=== PATIENT | male | born 1975 | race Caucasian/White ===

== ENCOUNTER 2016-09-26 13:17 | Emergency (ER) | payer MEDICAID, OTHER ==
[~2016-09-26] VITALS: Ht 182.9 cm; Wt 127.0 kg
[2016-09-26] MEDS ORDERED: ALBUTEROL FS 2.5 MG/3 ML VIAL.NEB NEB ONE (14:30)
[2016-09-26] MEDS ORDERED: IPRATROPIUM NEB FS 0.5 MG/2.5 ML AMPUL.NEB NEB ONE (14:30)
[2016-09-26] MEDS ORDERED: ACETAMINOPHEN ES 500 MG TABLET ONE (14:46)
[2016-09-26 14:48] LABS: BASOPHILS % (AUTO) 0.4 % (0.0-2.0); DIFF TOTAL % 100 %; EOSINOPHILS # (AUTO) 0.5 /CMM (0.0-0.7); EOSINOPHILS % (AUTO) 6.6 % (0.0-6.0); HEMATOCRIT 48 % (39-51); HEMOGLOBIN 16.1 g/dL (13.5-17.5); LYMPHOCYTES # (AUTO) 2.8 /CMM (0.8-4.8); LYMPHOCYTES % (AUTO) 34.6 % (20.0-44.0); MEAN CORPUSCULAR HEMOGLOBIN 29 PG (26.0-33.0); MEAN CORPUSCULAR HGB CONC 34 g/dl (31.0-36.0); MEAN CORPUSCULAR VOLUME 86 fL (80-96); MONOCYTES # (AUTO) 0.5 /CMM (0.1-1.30); MONOCYTES % (AUTO) 6.8 % (2.0-12.0); NEUTROPHILS # (AUTO) 4.2 /CMM (1.8-8.9); NEUTROPHILS % (AUTO) 51.6 % (43.0-81.0); PLATELET COUNT (AUTO) 335 /CMM (150-450); RED BLOOD CELL COUNT(AUTO) 5.54 MIL/uL (4.5-6.0)
[2016-09-26] MEDS ORDERED: IPRATROPIUM NEB FS 0.5 MG/2.5 ML AMPUL.NEB ONE (14:54)
[2016-09-26] MEDS ORDERED: ALBUTEROL FS 2.5 MG/3 ML VIAL.NEB ONE (14:54)
[2016-09-26 14:58] LABS: CALCIUM, SERUM 8.7 mg/dL (8.5-10.1); CREATININE 0.9 mg/dL (0.6-1.3); POTASSIUM 4.1 mmol/L (3.5-5.1)
[2016-09-26] MEDS ORDERED: ACETAMINOPHEN 325 MG TABLET PO ONE (15:00)
[2016-09-26 15:04] LABS: ALBUMIN 3.5 g/dL (3.4-5.0); BILIRUBIN,DIRECT 0.1 mg/dL (0.0-0.2); BILIRUBIN,TOTAL 0.5 mg/dL (0.2-1.0); INDIRECT BILIRUBIN 0.4 mg/dL (0.0-1.1); TOTAL PROTEIN, SERUM 7.7 g/dL (6.4-8.2)
[2016-09-26 17:00] VITALS: BP 140/89
== END 2016-09-26 17:12 | disposition home or self-care (01) ==
LOC: ER 13:20
DX: J12.9 Viral pneumonia, unspecified (principal); J40 Bronchitis, not specified as acute or chronic; E11.9 Type 2 diabetes mellitus without complications; I10 Essential (primary) hypertension; Z88.0 Allergy status to penicillin
CPT/HCPCS: 36415; 71010; 80048; 80076; 85025; 87804 ×2; 93005; 94640; 99285; A4606; Z7610; 87400

== ENCOUNTER 2016-10-08 23:37 | Emergency (ER) | payer MEDICAID ==
[~2016-10-08] VITALS: Ht 182.9 cm; Wt 127.0 kg
[2016-10-09] MEDS ORDERED: predniSONE 20 MG TABLET ONE (00:07)
[2016-10-09] MEDS ORDERED: ONDANSETRON 4 MG TAB.RAPDIS ONE (00:07)
[2016-10-09] MEDS ORDERED: HYDROCODONE/APAP 10/325MG 1 EA TABLET ONE (00:07)
[2016-10-09] MEDS ORDERED: IPRATROPIUM NEB FS 0.5 MG/2.5 ML AMPUL.NEB ONE (00:23)
[2016-10-09] MEDS ORDERED: ALBUTEROL FS 2.5 MG/3 ML VIAL.NEB ONE (00:23)
[2016-10-09 00:30] LABS: BASOPHILS # (AUTO) 0.1 /CMM (0.0-0.2); BASOPHILS % (AUTO) 0.7 % (0.0-2.0); DIFF TOTAL % 100 %; EOSINOPHILS # (AUTO) 0.5 /CMM (0.0-0.7); HEMATOCRIT 51 % (39-51); HEMOGLOBIN 17.7 g/dL (13.5-17.5); LYMPHOCYTES # (AUTO) 4.8 /CMM (0.8-4.8); MEAN CORPUSCULAR HEMOGLOBIN 31 PG (26.0-33.0); MEAN CORPUSCULAR HGB CONC 35 g/dl (31.0-36.0); MEAN CORPUSCULAR VOLUME 89 fL (80-96); MONOCYTES # (AUTO) 0.7 /CMM (0.1-1.30); MONOCYTES % (AUTO) 5.9 % (2.0-12.0); NEUTROPHILS # (AUTO) 5.5 /CMM (1.8-8.9); NEUTROPHILS % (AUTO) 47.4 % (43.0-81.0); PLATELET COUNT (AUTO) 486 /CMM (150-450); RED BLOOD CELL COUNT(AUTO) 5.66 MIL/uL (4.5-6.0); WHITE BLOOD COUNT (AUTO) 11.5 K/uL (4.3-11.0)
[2016-10-09] MEDS ORDERED: predniSONE 20 MG TABLET PO ONE (00:30)
[2016-10-09] MEDS ORDERED: ALBUTEROL FS 2.5 MG/3 ML VIAL.NEB NEB ONE (00:30)
[2016-10-09] MEDS ORDERED: ONDANSETRON 4 MG TAB.RAPDIS SL ONE (00:30)
[2016-10-09] MEDS ORDERED: IPRATROPIUM NEB FS 0.5 MG/2.5 ML AMPUL.NEB NEB ONE (00:30)
[2016-10-09] MEDS ORDERED: HYDROCODONE/APAP 10/325MG 1 EA TABLET PO ONE (00:30)
[2016-10-09 00:42] LABS: ANION GAP 12 (5-14); CALCIUM, SERUM 9.3 mg/dL (8.5-10.1); CARBON DIOXIDE 31 mmol/L (21-32); CHLORIDE 102 mmol/L (98-107); CREATININE 1.1 mg/dL (0.6-1.3); GFR 73 mL/min (>60); GLUCOSE 124 mg/dL (74-106); POTASSIUM 3.7 mmol/L (3.5-5.1); SODIUM SERUM 141 mmol/L (136-145); UREA NITROGEN, BLOOD 11 mg/dL (7-18)
[2016-10-09 00:50] LABS: TROPONIN I < 0.017 ng/mL (0.00-0.056)
[2016-10-09 00:52] LABS: ALANINE AMINOTRANSFERASE 111 U/L (12-78); ALBUMIN 3.9 g/dL (3.4-5.0); ASPARTATE AMINOTRANSFERASE 66 U/L (15-37); BILIRUBIN,DIRECT 0.1 mg/dL (0.0-0.2); BILIRUBIN,TOTAL 0.5 mg/dL (0.2-1.0); INDIRECT BILIRUBIN 0.4 mg/dL (0.0-1.1)
[2016-10-09] MEDS ORDERED: IBUPROFEN 600 MG TABLET PO ONE ×2 (01:15→01:30)
[2016-10-09 01:22] VITALS: BP 142/69
[2016-10-09] MEDS ORDERED: KETOROLAC TROMETHAMINE INJ 30 MG/ML VIAL IV ONE (01:30)
== END 2016-10-09 01:32 | disposition home or self-care (01) ==
LOC: ER 23:41
DX: J20.9 Acute bronchitis, unspecified (principal); J18.9 Pneumonia, unspecified organism; K80.20 Calculus of gallbladder without cholecystitis without obstruction; I10 Essential (primary) hypertension; E11.9 Type 2 diabetes mellitus without complications; Z88.0 Allergy status to penicillin
CPT/HCPCS: 36415; 71010; 76705; 80048; 80076; 83690; 83880; 84484; 85025; 85378; 93005; 94640 ×2; 99285; A4606; J7512; Q0162; Z7610

== ENCOUNTER 2016-11-12 18:21 | Emergency (ER) | payer MEDICAID ==
[~2016-11-12] VITALS: Ht 182.9 cm; Wt 127.0 kg
[2016-11-12 18:28] VITALS: BP 148/86
== END 2016-11-12 19:25 | disposition home or self-care (01) ==
LOC: ER 18:30
DX: K04.7 Periapical abscess without sinus (principal); I10 Essential (primary) hypertension; E11.9 Type 2 diabetes mellitus without complications; Z88.0 Allergy status to penicillin
CPT/HCPCS: 99283; A4606; Z7610

== ENCOUNTER 2017-03-11 17:09 | Emergency (ER) | payer OTHER ==
[~2017-03-11] VITALS: Ht 177.8 cm; Wt 95.3 kg
[2017-03-11 17:21] VITALS: BP 150/99
== END 2017-03-11 17:50 | disposition home or self-care (01) ==
LOC: ER 17:14
DX: R09.81 Nasal congestion (principal); Z88.0 Allergy status to penicillin; E11.9 Type 2 diabetes mellitus without complications
CPT/HCPCS: 99281; A4606; Z7610; Z7502

== ENCOUNTER 2017-06-07 12:53 | Emergency (ER) | payer MEDICAID, OTHER ==
[~2017-06-07] VITALS: Ht 182.9 cm; Wt 124.7 kg
[2017-06-07 12:53] VITALS: BP 146/96
== END 2017-06-07 13:58 | disposition home or self-care (01) ==
LOC: ER 12:56
DX: K02.9 Dental caries, unspecified (principal); E11.9 Type 2 diabetes mellitus without complications; I10 Essential (primary) hypertension; Z88.0 Allergy status to penicillin
CPT/HCPCS: 71010; 99283; A4606; Z7610

== ENCOUNTER 2017-06-17 16:52 | Emergency (ER) | payer MEDICAID ==
[~2017-06-17] VITALS: Ht 182.9 cm; Wt 122.5 kg
--- NOTE | 2017-06-17 17:12 | NUR ---
PT AMBULATORY W/ STEADY GAIT TO ER BED 11. PT IS C/O FEVER W/ COUGH AND CONGESTION X 2 WEEKS NOW. SOB. GOWNED AND PLACED ON MONITOR. AWAITING MD GONZALEZ.
--- NOTE | 2017-06-17 17:36 | NUR ---
DR ANGEL AT BEDSIDE FOR EVAL.
--- NOTE | 2017-06-17 17:42 | NUR ---
IV LINE STARTED. BLOOD DRAWN AND SENT TO LAB.
[2017-06-17 17:48] LABS: BASOPHILS % (AUTO) 0.3 % (0.0-2.0); EOSINOPHILS # (AUTO) 0.2 /CMM (0.0-0.7); EOSINOPHILS % (AUTO) 2.3 % (0.0-6.0); HEMATOCRIT 48 % (39-51); HEMOGLOBIN 16.2 g/dL (13.5-17.5); LYMPHOCYTES # (AUTO) 2.5 /CMM (0.8-4.8); LYMPHOCYTES % (AUTO) 24.7 % (20.0-44.0); MEAN CORPUSCULAR HEMOGLOBIN 29 PG (26.0-33.0); MEAN CORPUSCULAR HGB CONC 34 g/dl (31.0-36.0); MEAN CORPUSCULAR VOLUME 84 fL (80-96); MONOCYTES # (AUTO) 0.8 /CMM (0.1-1.30); MONOCYTES % (AUTO) 7.5 % (2.0-12.0); NEUTROPHILS # (AUTO) 6.6 /CMM (1.8-8.9); NEUTROPHILS % (AUTO) 65.2 % (43.0-81.0); PLATELET COUNT (AUTO) 419 /CMM (150-450); RDW COEFFICIENT OF VARIATION 12.1 (11.5-15.0); RED BLOOD CELL COUNT(AUTO) 5.68 MIL/uL (4.5-6.0); WHITE BLOOD COUNT (AUTO) 10.1 K/uL (4.3-11.0)
[2017-06-17 17:57] LABS: CALCIUM, SERUM 8.8 mg/dL (8.5-10.1); POTASSIUM 3.8 mmol/L (3.5-5.1)
--- NOTE | 2017-06-17 18:10 | NUR ---
PT TO RADIOLOGY FOR CHEST CT SCAN VIA [facility].
--- NOTE | 2017-06-17 18:25 | NUR ---
RT AT BEDSIDE FOR BREATHING TREATMENT.
--- NOTE | 2017-06-17 19:20 | NUR ---
CALLED [facility], ASSEMBLER WET WASH WAS PAGED.
--- NOTE | 2017-06-17 20:58 | NUR ---
REPORT GIVEN TO DOLLY. PT AWAITING TRANSFER TO FLOOR.
[2017-06-17 23:06] VITALS: BP 142/90
--- NOTE | 2017-06-17 23:30 | NUR ---
Pt accepted to [facility] by Dr. LOPEZ. Room 5531. # For report [phone]
--- NOTE | 2017-06-17 23:34 | NUR ---
CALLED [facility] FOR TRANSPORT, ETA OF 90 MINS WAS GIVEN.
--- NOTE | 2017-06-17 23:42 | NUR ---
REPORT GIVEN TO KIMI APODACA AT [facility] AWAITING TRANSFER.
--- NOTE | 2017-06-18 01:12 | NUR ---
[facility] at bedside for transport to [facility].
== END 2017-06-18 01:17 | disposition short-term general hospital (02) ==
LOC: ER 16:53
DX: J18.9 Pneumonia, unspecified organism (principal); J91.8 Pleural effusion in other conditions classified elsewhere; E11.9 Type 2 diabetes mellitus without complications; I10 Essential (primary) hypertension; J45.909 Unspecified asthma, uncomplicated; Z88.0 Allergy status to penicillin
CPT/HCPCS: 36415; 71010-TC; 71250-TC; 80048-TC; 83605-TC; 85025-TC; 87040-TC; 87081-TC; 87400; A4606; J1956; J7030; Z7610

== ENCOUNTER 2018-01-24 15:01 | Emergency (ER) | payer MEDICAID, OTHER | END 2018-01-24 15:41 | disposition home or self-care (01) | DX: M54.5 Low back pain (principal); I10 Essential (primary) hypertension; E11.9 Type 2 diabetes mellitus without complications; Z88.0 Allergy status to penicillin ==

== ENCOUNTER 2019-01-26 10:20 | Emergency (ER) | payer MEDICAID, OTHER ==
[~2019-01-26] VITALS: Ht 182.9 cm; Wt 125.6 kg
--- NOTE | 2019-01-26 10:45 | NUR ---
PATIENT ARRIVED AMBULATORY WITH C/O DISCOMFORT AND ABSCESS ON HIS UPPER BACK. A&O X 3, NO ACUTE DISTRESS AT THIS TIME
[2019-01-26] MEDS ORDERED: HYDROCODONE/APAP 5/325MG 1 EACH TABLET ONE (11:20)
--- NOTE | 2019-01-26 11:27 | NUR ---
Patient discharged to home in stable condition. Written and verbal after care instructions given. Patient verbalizes understanding of instruction. Written prescriptions given to patient and verbalized understanding,
[2019-01-26 11:28] VITALS: BP 143/82
[2019-01-26] MEDS ORDERED: HYDROCODONE/APAP 5/325MG 1 EACH TABLET PO ONE (11:30)
== END 2019-01-26 11:29 | disposition home or self-care (01) ==
LOC: ER 10:29
DX: L72.3 Sebaceous cyst (principal); E11.9 Type 2 diabetes mellitus without complications; I10 Essential (primary) hypertension; Z88.0 Allergy status to penicillin

== ENCOUNTER 2019-04-23 11:31 | Emergency (ER) | payer OTHER ==
[~2019-04-23] VITALS: Ht 182.9 cm; Wt 122.5 kg
--- NOTE | 2019-04-23 12:47 | NUR ---
KURTIS DA SILVA AT BEDSIDE FOR EVAL.
[2019-04-23] MEDS ORDERED: ACETAMINOPHEN ES 500 MG TABLET ONE (12:55)
[2019-04-23] MEDS ORDERED: ACETAMINOPHEN ES 500 MG TABLET PO ONE (13:00)
[2019-04-23] MEDS ORDERED: IV NS 0.9% 1,000 ML BAG IV ONE (13:00)
[2019-04-23] MEDS ORDERED: LIDOCAINE 1%-EPI 1:100,000 20 ML VIAL ONE (13:00)
[2019-04-23] MEDS ORDERED: CLINDAMYCIN 900 MG in IV D5W 100 ML IV ONE (13:00)
--- NOTE | 2019-04-23 13:07 | NUR ---
DISBURSING AGENT AT BEDSIDE FOR BLOOD DRAW.
[2019-04-23 13:14] LABS: BASOPHILS # (AUTO) 0.1 /CMM (0.0-0.2); BASOPHILS % (AUTO) 0.3 % (0.0-2.0); EOSINOPHILS % (AUTO) 1.4 % (0.0-6.0); HEMATOCRIT 43 % (39-51); LYMPHOCYTES # (AUTO) 1.6 /CMM (0.8-4.8); LYMPHOCYTES % (AUTO) 9.7 % (20.0-44.0); MEAN CORPUSCULAR HGB CONC 35 g/dl (31.0-36.0); MEAN CORPUSCULAR VOLUME 85 fL (80-96); MONOCYTES # (AUTO) 1.2 /CMM (0.1-1.30); NEUTROPHILS # (AUTO) 13.4 /CMM (1.8-8.9); NEUTROPHILS % (AUTO) 81.6 % (43.0-81.0); PLATELET COUNT (AUTO) 238 /CMM (150-450); RED BLOOD CELL COUNT(AUTO) 5.08 MIL/uL (4.5-6.0); WHITE BLOOD COUNT (AUTO) 16.5 K/uL (4.3-11.0)
[2019-04-23 13:20] LABS: CALCIUM, SERUM 8.8 mg/dL (8.5-10.1); CREATININE 0.9 mg/dL (0.6-1.3); POTASSIUM 3.6 mmol/L (3.5-5.1)
--- NOTE | 2019-04-23 14:39 | NUR ---
INCISION AND DRAINAGE DONE. PROVIDED W/ WOUND CARE. D/C HOME IN STABLE CONDITION. IVHL D/C'D. NO BLEEDING NOTED.
[2019-04-23 14:43] VITALS: BP 132/68
== END 2019-04-23 14:43 | disposition home or self-care (01) ==
LOC: ER 11:35
DX: L02.212 Cutaneous abscess of back [any part, except buttock and flank] (principal); L03.312 Cellulitis of back [any part except buttock and flank]; E11.65 Type 2 diabetes mellitus with hyperglycemia; E66.9 Obesity, unspecified; I10 Essential (primary) hypertension; F10.10 Alcohol abuse, uncomplicated; R00.0 Tachycardia, unspecified; Y90.9 Presence of alcohol in blood, level not specified; Z68.30 Body mass index [BMI] 30.0-30.9, adult; Z88.0 Allergy status to penicillin; Z88.2 Allergy status to sulfonamides; Z88.1 Allergy status to other antibiotic agents
CPT/HCPCS: 10060; 36415; 80048; 82962; 83605; 85025; 87040 ×2; 96365; 99283; A6403; A6407; J3490 ×2; J7030 ×2; J7060

== ENCOUNTER → 2019-04-25 | Emergency (ER) | payer OTHER ==
[~2019-04-25] VITALS: Ht 182.9 cm; Wt 122.5 kg
[2019-04-25 22:45] VITALS: BP 136/83
== END | disposition home or self-care (01) ==
LOC: ER 22:28
DX: L02.212 Cutaneous abscess of back [any part, except buttock and flank] (principal); I10 Essential (primary) hypertension; E11.9 Type 2 diabetes mellitus without complications; F10.10 Alcohol abuse, uncomplicated; Y90.9 Presence of alcohol in blood, level not specified; Z88.0 Allergy status to penicillin; Z88.1 Allergy status to other antibiotic agents; Z88.2 Allergy status to sulfonamides

== ENCOUNTER 2021-04-19 12:09 | Emergency (ER) | payer OTHER ==
[~2021-04-19] VITALS: Ht 182.9 cm; Wt 117.9 kg
[2021-04-19 12:26] VITALS: BP 150/101
[2021-04-19] MEDS ORDERED: HYDROCODONE/APAP 10/325MG TABLET ONE (12:54)
[2021-04-19] MEDS ORDERED: AMOXICILLIN TRIHYDRATE 250 MG CAPSULE ONE (12:54)
[2021-04-19] MEDS ORDERED: HYDR-4209 PO (13:00)
[2021-04-19] MEDS ORDERED: CLIN300C12 PO (13:00)
[2021-04-19] MEDS: AMOXICILLIN TRIHYDRATE 500 MG CAPSULE PO ONE (13:01)
[2021-04-19] MEDS: HYDROCODONE/APAP 10/325MG TABLET PO ONE (13:01)
[2021-04-19] MEDS ORDERED: CLINDAMYCIN HCL 150 MG CAPSULE PO ONE (13:03)
[2021-04-19] MEDS: CLINDAMYCIN HCL 150 MG CAPSULE PO ONE (13:04)
--- NOTE | 2021-04-19 13:21 | NUR ---
patient did not develop any reaction from amoxicillin, patient feels ok to go home. dcPatient discharged to home in stable condition. Written and verbal after care instructions given. Patient verbalizes understanding of instruction.
== END 2021-04-19 13:22 | disposition home or self-care (01) ==
LOC: ER 12:13
DX: K08.89 Other specified disorders of teeth and supporting structures (principal); E11.9 Type 2 diabetes mellitus without complications; I10 Essential (primary) hypertension; Z88.0 Allergy status to penicillin; Z88.1 Allergy status to other antibiotic agents; Z88.2 Allergy status to sulfonamides

== ENCOUNTER 2021-05-17 11:11 | Emergency (ER) | payer OTHER ==
[~2021-05-17] VITALS: Ht 182.9 cm; Wt 113.4 kg
[~2021-05-17 11:11] MED LIST: CLIN300C12 PO; HYDR-4209 PO
--- NOTE | 2021-05-17 11:25 | NUR ---
PATIENT C/O WORSENING R SIDED UPPER BACK PAIN X 1 MONTH WORST LAYING DOWN. PATIENT ALERT AND ORIENTED X4. RESPIRATIONS EVEN AND UNLABORED. O SOB NOTED. WILL CONTINUE TO MONITOR.
[2021-05-17] MEDS ORDERED: HYDROCODONE/APAP 5/325MG TABLET ONE (11:33)
[2021-05-17] MEDS: HYDROCODONE/APAP 5/325MG TABLET PO ONE (11:38)
--- NOTE | 2021-05-17 11:44 | NUR ---
RADIOLOGY AT BEDSIDE.
[2021-05-17] MEDS ORDERED: HYDR-3972 PO ×2 (12:18→13:06)
--- NOTE | 2021-05-17 12:24 | NUR ---
Patient discharged to home in stable condition. Written and verbal after care instructions given. Patient verbalizes understanding of instruction.
[2021-05-17 12:25] VITALS: BP 142/82
== END 2021-05-17 12:25 | disposition home or self-care (01) ==
LOC: ER 11:13
DX: M54.6 Pain in thoracic spine (principal); E11.9 Type 2 diabetes mellitus without complications; I10 Essential (primary) hypertension; F10.10 Alcohol abuse, uncomplicated; R00.0 Tachycardia, unspecified; E66.9 Obesity, unspecified; Y90.9 Presence of alcohol in blood, level not specified; Z68.33 Body mass index [BMI] 33.0-33.9, adult; Z79.899 Other long term (current) drug therapy; Z88.0 Allergy status to penicillin; Z88.2 Allergy status to sulfonamides
CPT/HCPCS: 71046

== ENCOUNTER 2024-08-15 09:42 | Emergency (ER) | payer OTHER ==
[~2024-08-15] VITALS: Ht 177.8 cm; Wt 111.6 kg
[~2024-08-15 09:42] MED LIST changes: +HYDR-3972 PO
[2024-08-15] MEDS ORDERED: CLIN300C12 PO (10:27)
[2024-08-15 10:49] VITALS: BP 141/91; TEMP 98.5; O2SAT 98
== END 2024-08-15 10:49 | disposition home or self-care (01) ==
LOC: ER 09:49
DX: K04.7 Periapical abscess without sinus (principal); K02.9 Dental caries, unspecified; I10 Essential (primary) hypertension; E11.9 Type 2 diabetes mellitus without complications; Z79.899 Other long term (current) drug therapy; Z88.2 Allergy status to sulfonamides; Z88.1 Allergy status to other antibiotic agents; Z88.0 Allergy status to penicillin

== ENCOUNTER 2024-09-08 12:19 | Emergency (ER) | payer OTHER ==
[~2024-09-08] VITALS: Ht 182.9 cm; Wt 112.0 kg
[2024-09-08] MEDS ORDERED: METH4TAB3 PO (13:11)
[2024-09-08] MEDS ORDERED: INDO-12 PO (13:11)
[2024-09-08] MEDS ORDERED: methylPREDNISolone SOD SUCC 125 MG/2ML VIAL ONE (13:15)
[2024-09-08] MEDS ORDERED: KETOROLAC TROMETHAMINE 15 MG/ML VIAL ONE (13:15)
[2024-09-08] MEDS: IV NS 0.9% 500 ML BAG IV ONE (13:33)
[2024-09-08] MEDS: methylPREDNISolone SOD SUCC 125 MG/2ML VIAL IV ONE (13:35)
[2024-09-08] MEDS: KETOROLAC TROMETHAMINE 15 MG/ML VIAL IV ONE (13:35)
[2024-09-08 14:36] VITALS: BP 153/90; TEMP 98.3; O2SAT 99
== END 2024-09-08 14:36 | disposition home or self-care (01) ==
LOC: ER 12:21
DX: M25.571 Pain in right ankle and joints of right foot (principal); M79.671 Pain in right foot; M06.4 Inflammatory polyarthropathy; E11.9 Type 2 diabetes mellitus without complications; I10 Essential (primary) hypertension; Z88.0 Allergy status to penicillin; Z88.1 Allergy status to other antibiotic agents; Z88.2 Allergy status to sulfonamides
CPT/HCPCS: 99284; 96374; 96361; 96375; 73630; J2919; J7030; J1885